=== PATIENT | male | born 1960 | race Caucasian/White ===

== ENCOUNTER 2020-05-11 12:02 | Emergency (ER) | payer OTHER, SELFPAY ==
[2020-05-11 12:30] VITALS: BP 129/84; PULSE 87; RESP 16; TEMP 37.4; O2SAT 95; BMI 31.4
--- NOTE | 2020-05-11 12:45 | XRR_ITS ---
PROCEDURE INFORMATION: Exam: XR Chest Exam date and time: 05/11/2020 12:48 PM Age: 59 years old Clinical indication: Chest pain; Type not specified TECHNIQUE: Imaging protocol: XR of the chest Views: 1 view. COMPARISON: No relevant prior studies available. FINDINGS: Lungs: Unremarkable. No consolidation. Pleural spaces: Unremarkable. No pleural effusion. No pneumothorax. Heart/Mediastinum: Unremarkable. No cardiomegaly. Bones/joints: Unremarkable. XR/XR chest 1V portable [id number] IMPRESSION: No acute findings.
--- NOTE | 2020-05-11 12:46 | ECG_ITS ---
[facility] Test Date: 2020-05-11 Pat Name: Pete Alvarado Department: Room: Gender: Male Manager Of Clinical: : 1960 Requested By: Eliud Hernandez Order Number: [id number] Maddie MD: Dago Leos M.D. Measurements Intervals [place] Rate: 87 P: 57 SD: 179 QRS: 38 QRSD: 76 T: 46 QT: 357 QTc: 430 Interpretive Statements SINUS RHYTHM POSSIBLE LEFT ATRIAL ENLARGEMENT [-0.1mV P WAVE IN V1/V2] No previous ECG available for comparison Electronically Signed On 05-11-2020 16:59:38 CDT by Dago Leos M.D. [id number]
--- NOTE | 2020-05-11 13:28 | W.ED.CHESTPA ---
HPI - Chest Pain General: Chief Complaint: Chest Pain Stated Complaint: CP Time Seen by Provider: 05/11/20 12:40 History of Present Illness: HPI narrative: 59-year-old male to the emergency room with complaints of chest pain is positional worsened by inspiration relieved by laying back. He said a fever the last couple of days and used check for Covid on a rapid antigen earlier today at [facility]. He denies any anosmia denies any diarrhea. Has had a nonproductive cough. Denies any pain radiating to his neck or arms or back. MD complaint: chest pain Onset (ago): day(s) Timing of current episode: episodic Onset: other (Inspiration or position change) Pain radiation: none Severity: moderate Quality: sharp Relieving factors: rest Exacerbating factors: inspiration and movement Associated symptoms: Deny abdominal pain, diaphoresis, dyspnea, fever(s), leg edema, nausea, palpitations, sense of impending doom, syncope or vomiting Treatment prior to arrival: none Review of Systems Const: Denies: fever(s) or diaphoresis ENMT: Denies: throat pain, ear or mastoid pain, nasal discharge or nasal congestion Card: Denies: palpitations or syncope Resp: Denies: dyspnea GI: Denies: abdominal pain, nausea or vomiting : Denies: flank pain, dysuria, urinary frequency or urinary urgency Skin/Breast: Denies: rash or pruritus Physical Exam Const: COMMON NORMALS: no acute distress GENERAL APPEARANCE: cooperative and comfortable ORIENTATION/CONSCIOUSNESS: Yes awake, Yes oriented to person, Yes oriented to place and Yes oriented to time HENMT: COMMON NORMALS: normocephalic, atraumatic and hearing grossly normal bilaterally HEAD & SCALP: normocephalic and atraumatic Neck/C-Spine: COMMON NORMALS: no JVD Lymph: LYMPHATIC: no lymphadenopathy noted and no lymphedema noted Resp: COMMON NORMALS: normal respiratory effort, No retractions, No use of accessory muscles and clear to auscultation bilaterally AUSCULTATION: clear to auscultation bilaterally Cardio: COMMON NORMALS: no JVD, regular rate, regular rhythm and No murmurs present (Cardio) RATE: regular rate RHYTHM: regular rhythm GI: COMMON NORMALS: No hepatosplenomegaly present AUSCULTATION: Yes normoactive bowel sounds PALPATION: Yes Tenderness to palpation present (GI), Yes Guarding due to palpation present (GI) and Yes No hepatosplenomegaly present Extremity: COMMON NORMALS: normal to inspection, capillary refill normal, no clubbing, cyanosis or edema, no calf tenderness and no pedal edema Neuro: SENSORIUM/ORIENTATION: Yes oriented to person, Yes oriented to place and Yes oriented to time Skin: COMMON NORMALS: no rashes or lesions noted GENERAL SKIN EXAM: no rashes or lesions noted Course Vital Signs: Vital signs: Vital Signs Temperature 99.3 F 05/11/20 12:30 Pulse Rate 84 05/11/20 16:50 Respiratory Rate 18 05/11/20 16:50 Blood Pressure 129/92 05/11/20 16:50 Pulse Oximetry 95 05/11/20 16:50 MDM - Chest Pain MDM Narrative: Medical decision making narrative: Your cardiac enzymes negative. We will go ahead and discharge the patient home start him on hydrocodone for the chest discomfort as well as a Medrol Dosepak. Have him follow-up with his primary care doctor his description of his pain does not sound cardiac did advise the patient if you worsen or changes in any way he should return to the emergency room. Discussed with his primary care doctor about potential need for stress test if symptoms do not improve. Also asked patient to take baby aspirin daily. Lab Data: Labs: Lab Results 05/11/20 05/11/20 05/11/20 Range/Units 13:30 13:30 13:30 WBC 12.2 H (4.0-10.0) 10^3/ uL RBC 4.65 (4.1-5.3) 10^6/u L Hgb 15.2 (11.7-16.6) g/dL Hct 43.9 (42.0-52.0) % MCV 94.4 H (80-94) fL MCH 32.7 (28.0-34.0) pg MCHC 34.6 (30.0-36.0) g/dL RDW 12.2 (12.1-15.1) % Plt Count 252 (130-400) 10^3/c mm MPV 10.6 H (7.4-10.4) fL Neut % (Auto) 80.1 % Lymph % (Auto) 12.5 % [place] % (Auto) 6.3 % Eos % (Auto) 0.6 % Baso % (Auto) 0.3 % Neut # (Auto) 9.76 H (1.8-7.7) 10^3/u L Lymph # (Auto) 1.5 (0.8-4.8) 10^3/u L [place] # (Auto) 0.8 (0.2-0.9) 10^3/u L Eos # (Auto) 0.1 (0.0-0.8) 10^3/u L Baso # (Auto) 0.0 (0.0-0.1) 10^3/u L Nucleated RBC % (a uto) 0 % Nucleated RBCs # 0.0 /100WBC Sodium 139 (136-145) mmol/L Potassium 3.8 (3.5-5.1) mmol/L Chloride 102 (98-107) mmol/L Carbon Dioxide 24 (22-29) mmol/L Anion Gap 16.8 (5-19) BUN 12 (8-23) mg/dL Creatinine 0.7 (0.7-1.2) mg/dL GFR Calculation 114.6 (90-130) mL/min Glucose 95 (65-115) mg/dL Calculated Osmolal ity 288 (285-295) mOsm/k g Calcium 8.7 (8.5-10.5) mg/dL Total Bilirubin 0.8 (0.15-1.2) mg/dL AST 24 (0-40) U/L ALT 33 (0-41) U/L Alkaline Phosphata se 69 (40-130) IU/L Troponin T Baselin e 6 (0-15) ng/L Troponin T 120 Min [place] (0-15) ng/L Delta Troponin T (0-10) ABS# Total Protein 6.3 L (6.6-8.7) g/dL Albumin 3.9 (3.5-5.2) g/dL Globulin 2.4 (1.3-4.6) g/dL 05/11/20 Range/Units 15:36 WBC (4.0-10.0) 10^3/ uL RBC (4.1-5.3) 10^6/u L Hgb (11.7-16.6) g/dL Hct (42.0-52.0) % MCV (80-94) fL MCH (28.0-34.0) pg MCHC (30.0-36.0) g/dL RDW (12.1-15.1) % Plt Count (130-400) 10^3/c mm MPV (7.4-10.4) fL Neut % (Auto) % Lymph % (Auto) % [place] % (Auto) % Eos % (Auto) % Baso % (Auto) % Neut # (Auto) (1.8-7.7) 10^3/u L Lymph # (Auto) (0.8-4.8) 10^3/u L [place] # (Auto) (0.2-0.9) 10^3/u L Eos # (Auto) (0.0-0.8) 10^3/u L Baso # (Auto) (0.0-0.1) 10^3/u L Nucleated RBC % (a uto) % Nucleated RBCs # /100WBC Sodium (136-145) mmol/L Potassium (3.5-5.1) mmol/L Chloride (98-107) mmol/L Carbon Dioxide (22-29) mmol/L Anion Gap (5-19) BUN (8-23) mg/dL Creatinine (0.7-1.2) mg/dL GFR Calculation (90-130) mL/min Glucose (65-115) mg/dL Calculated Osmolal ity (285-295) mOsm/k g Calcium (8.5-10.5) mg/dL Total Bilirubin (0.15-1.2) mg/dL AST (0-40) U/L ALT (0-41) U/L Alkaline Phosphata se (40-130) IU/L Troponin T Baselin e (0-15) ng/L Troponin T 120 Min [place] 6.00 (0-15) ng/L Delta Troponin T 0 (0-10) ABS# Total Protein (6.6-8.7) g/dL Albumin (3.5-5.2) g/dL Globulin (1.3-4.6) g/dL Discharge Plan Discharge Patient Disposition: Home Clinical Impression: Pleurisy Condition: Stable Prescriptions: New hydrocodone-acetaminophen 5-325 mg tablet 1 tab PO Q6H PRN (Reason: pain) Qty: 12 RF: 0 Medrol (Jerel) 4 mg tablets,dose pack See Rx Instructions .ROUTE .COMPLEX Qty: 21 RF: 0 No Action [employer] Capsule 1 cap PO DAILY RF: 0 Discharge Orders: Discharge ED (Routine); Ordered 05/11/20 Ordered By: Eliud Jarquin Referrals: Yaw Euceda DO [Primary Care Provider] - Discharge Diet: Usual diet Discharge Activity: Increase activity as tolerated Patient Instructions: Opioid Safety Activity Restrictions/Additional Instructions: Follow-up with your doctor within the next 2 weeks. If you have any worsening of symptoms return. Coding Level of Care Code ED Fire Inspector for Chg Fwd Exam Comprehensive
[2020-05-11 13:59] LABS: Basophils % 0.3 %; Eosinophils # 0.1 10^3/uL (0.0-0.8); Eosinophils % 0.6 %; Hematocrit 43.9 % (42.0-52.0); Hemoglobin 15.2 g/dL (11.7-16.6); Lymphocytes # 1.5 10^3/uL (0.8-4.8); Lymphocytes % 12.5 %; Mean Corpuscular HGB Conc 34.6 g/dL (30.0-36.0); Mean Corpuscular Hemoglobin 32.7 pg (28.0-34.0); Mean Corpuscular Volume 94.4 fL (80-94); Mean Platelet Volume 10.6 fL (7.4-10.4); Monocytes # 0.8 10^3/uL (0.2-0.9); Monocytes % 6.3 %; Neutrophils # 9.76 10^3/uL (1.8-7.7); Neutrophils % 80.1 %; Nucleated Red Blood Cells % 0 %; Platelet Count 252 10^3/cmm (130-400); Red Blood Count 4.65 10^6/uL (4.1-5.3); Red Cell Distribution Width 12.2 % (12.1-15.1); White Blood Count 12.2 10^3/uL (4.0-10.0)
[2020-05-11 14:22] LABS: Alanine Aminotransferase 33 U/L (0-41); Albumin Level 3.9 g/dL (3.5-5.2); Alkaline Phosphatase 69 IU/L (40-130); Anion Gap 16.8 (5-19); Aspartate Amino Transferase 24 U/L (0-40); Blood Urea Nitrogen 12 mg/dL (8-23); Calcium 8.7 mg/dL (8.5-10.5); Carbon Dioxide 24 mmol/L (22-29); Chloride 102 mmol/L (98-107); Globulin 2.4 g/dL (1.3-4.6); Glomerular Filtration Rate 114.6 mL/min (90-130); Glucose 95 mg/dL (65-115); Osmolality Calculated 288 mOsm/kg (285-295); Potassium 3.8 mmol/L (3.5-5.1); Sodium 139 mmol/L (136-145); Total Bilirubin 0.8 mg/dL (0.15-1.2); Total Protein 6.3 g/dL (6.6-8.7)
[2020-05-11 14:23] LABS: Troponin(5th) Baseline 6 ng/L (0-15)
--- NOTE | 2020-05-11 14:46 | ECG_ITS ---
[facility] Test Date: 2020-05-11 Pat Name: Pete Alvarado Department: Room: Gender: Male Machine Setup Operator: : 1960 Requested By: Eliud Hernandez Order Number: [id number] Maddie MD: Dago Leos M.D. Measurements Intervals [place] Rate: 77 P: 42 [place]: 178 QRS: 35 QRSD: 76 T: 40 QT: 372 QTc: 423 Interpretive Statements SINUS RHYTHM Compared to ECG 05/11/2020 12:26:38 No significant changes Electronically Signed On 05-11-2020 17:04:08 CDT by Dago Leos M.D. [email or web address] [id number]
[2020-05-11 16:09] LABS: Troponin 5 2HR Delta 0 ABS# (0-10)
[2020-05-11 16:50] VITALS: BP 129/92; PULSE 84; RESP 18; O2SAT 95
== END 2020-05-11 16:52 | disposition home or self-care (01) ==
PROVIDERS: Emergency Provider Family Medicine; PCP Electrodiagnostic Medicine
DX: R09.1 Pleurisy (principal)
CPT/HCPCS: 36415; 71045; 80053; 84484; 85025; 93005; 99283

== ENCOUNTER 2020-11-01 10:04 | Outpatient (CLI) | payer OTHER, SELFPAY ==
--- NOTE | 2020-11-01 10:14 | XR_ITS ---
WS: [id number] Exam: XR foot LT min 3V* [id number] Date/Time of Exam: 11/01/2020 10:28 AM Reason For Exam: FOOT JOINT PAIN LEFT No fracture or dislocation. 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 No soft tissue foreign bodies are seen. XR/XR foot LT min 3V* [id number] IMPRESSION: 1. No fracture or dislocation noted.
== END 2020-11-01 10:05 | disposition home or self-care (01) ==
PROVIDERS: PCP Electrodiagnostic Medicine; Visit Provider Electrodiagnostic Medicine
DX: M79.672 Pain in left foot (principal)
CPT/HCPCS: 73630

== ENCOUNTER 2021-05-13 08:32 | Outpatient (CLI) | payer OTHER, SELFPAY ==
--- NOTE | 2021-05-13 08:41 | FL_ITS ---
WS: [id number] FL upper GI w air* [id number] REASON FOR EXAM: DYSPHAGIA FLUOROSCOPY TIME: 2min [id number] # OF SPOT FILMS: 12 FINDINGS: The upper GI tract was evaluated from the hypopharynx to the ligament of Treitz. Patient was examined in the upright, prone RYAN and supine LPO positions. No abnormality of swallowing was identified. The subcervical esophagus demonstrated a normal stripping wave and no significant retention or tertia ry contractions. There was a small sliding hiatal hernia with no fixed Schatzki ring which measured 10.4 mm in maximum width. The stomach was of normal volume and contour and demonstrated a normal fold pattern. The pylorus duodenal bulb and duodenal sweep were unremarkable. FL/FL upper GI w air* [id number] IMPRESSION: Small hiatal hernia with fixed Schatzki ring as above.
== END 2021-05-13 08:33 | disposition home or self-care (01) ==
LOC: RAD 08:33
PROVIDERS: PCP Electrodiagnostic Medicine; Visit Provider Electrodiagnostic Medicine
DX: R13.10 Dysphagia, unspecified (principal); K44.9 Diaphragmatic hernia without obstruction or gangrene
CPT/HCPCS: 74246

== ENCOUNTER → 2023-10-31 13:50 | Outpatient (BNVA) | payer MEDICARE, OTHER, SELFPAY | PROVIDERS: Visit Provider Nurse Practitioner Family | DX: L57.0 Actinic keratosis (principal); L82.1 Other seborrheic keratosis; L73.8 Other specified follicular disorders; D22.62 Melanocytic nevi of left upper limb, including shoulder; L81.4 Other melanin hyperpigmentation; L57.8 Other skin changes due to chronic exposure to nonionizing radiation | CPT/HCPCS: 17000; 99213 ==

== ENCOUNTER → 2024-10-27 15:46 | Outpatient (BNVA) | payer MEDICARE, OTHER, SELFPAY | PROVIDERS: Visit Provider Nurse Practitioner Family | DX: L57.8 Other skin changes due to chronic exposure to nonionizing radiation (principal); L81.4 Other melanin hyperpigmentation; D22.5 Melanocytic nevi of trunk; L82.1 Other seborrheic keratosis; L57.0 Actinic keratosis | CPT/HCPCS: 17000; 99213 ==